=== PATIENT | female | born 1990 | race African-American/Black ===

== ENCOUNTER 2017-04-22 02:56 | Emergency (ER) | payer SELFPAY ==
[~2017-04-22] VITALS: Ht 154.9 cm; Wt 68.0 kg
[2017-04-22 03:24] VITALS: BP 127/88
[2017-04-22] MEDS ORDERED: FLUORESCEIN OPHTH TEST STRIP. OD ONE (04:00)
[2017-04-22] MEDS ORDERED: TETRACAINE 0.5% OPHTH SOLUTION 4ML BOTTLE. OD ONE (04:00)
--- NOTE | 2017-04-22 04:06 | PHYS DOC ---
Past Medical History Past Medical History: No Pertinent History Past Surgical History: No Surgical History Alcohol Use: None Drug Use: None Adult General Chief Complaint Chief Complaint: EYE PROBLEMS [facility] HPI Patient is a 27 year old female who presents with complains of right eye pain for the past couple hours after her infant son accidentally poked her in the right eye. She says she is able to see out of the eye but it hurts. No other trauma or injury; does not wear contact lenses. Review of Systems Review of Systems Constitutional: Denies fever or chills [] Eyes: Denies change in visual acuity, redness, or eye pain [] HENT: Denies nasal congestion or sore throat [] Respiratory: Denies cough or shortness of breath [] Cardiovascular: No additional information not addressed in HPI [] GI: Denies abdominal pain, nausea, vomiting, bloody stools or diarrhea [] : Denies dysuria or hematuria [] Musculoskeletal: Denies back pain or joint pain [] Integument: Denies rash or skin lesions [] Neurologic: Denies headache, focal weakness or sensory changes [] Endocrine: Denies polyuria or polydipsia [] Current Medications Current Medications Current Medications Medications (Trade) Dose Ordered Sig/Hern[place] Start Time Stop Time Status Last Admin Dose Admin Fluorescein Sodium (Ful-Ana) 1 strip 1X ONCE 04/22/17 04:00 04/22/17 04:01 DC 04/22/17 03:34 1 STRIP Tetracaine HCl (Tetracaine) 1 drop 1X ONCE 04/22/17 04:00 04/22/17 04:01 DC 04/22/17 03:34 1 DROP Allergies Allergies Allergies Coded Allergies Type Severity Reaction Last Updated Verified No Known Drug Allergies 04/22/17 No Physical Exam Physical Exam Constitutional: Well developed, well nourished, no acute distress, non-toxic appearance. [] HENT: Normocephalic, atraumatic, bilateral external ears normal, oropharynx moist, no oral exudates, nose normal. [] Eyes: PERRLA, EOMI, conjunctiva normal, no discharge. Right eye conjunctiva and sclera are injected using a slit lamp after tetracaine was instilled and FLOURESCEIN strips patient is a rather large corneal abrasion; pupil is normal in size and shape and the anterior chamber Is clear; there is no hyphema. [] Neck: Normal range of motion, no tenderness, supple, no stridor. [] Cardiovascular:Heart rate regular rhythm, no murmur [] Lungs & Thorax: Bilateral breath sounds clear to auscultation [] Abdomen: Bowel sounds normal, soft, no tenderness, no masses, no pulsatile masses. [] Skin: Warm, dry, no erythema, no rash. [] Back: No tenderness, no CVA tenderness. [] Extremities: No tenderness, no cyanosis, no clubbing, ROM intact, no edema. [] Neurologic: Alert and oriented X 3, normal motor function, normal sensory function, no focal deficits noted. [] Psychologic: Affect normal, judgement normal, mood normal. [] Current Patient Data Vital Signs Vital Signs Date Time Temp Pulse Resp B/P (MAP) Pulse Ox O2 Delivery O2 Flow Rate FiO2 04/22/17 03:24 99.1 82 16 97 Room Air 99.1 EKG EKG [] Radiology/Procedures Radiology/Procedures [] Course & Med Decision Making Course & Med Decision Making Pertinent Labs and Imaging studies reviewed. (See chart for details) Patient will be placed on Cipro ophthalmic drops [] Dragon Disclaimer Dragon Disclaimer This electronic medical record was generated, in whole or in part, using a voice recognition dictation system. Departure Departure Impression: Primary Impression: Right corneal abrasion Disposition: HOME, SELF-CARE Condition: IMPROVED Referrals: NO PCP (PCP) TYSHAWN NEWELL MD April 22, 2017 04:06
[2017-04-22] MEDS ORDERED: CIPR2.5D OD (04:09)
== END 2017-04-22 04:20 | disposition home or self-care (01) ==
LOC: ER 02:56
DX: S05.01XA Injury of conjunctiva and corneal abrasion without foreign body, right eye, initial encounter (principal); W50.4XXA Accidental scratch by another person, initial encounter; Y93.89 Activity, other specified; Y92.89 Other specified places as the place of occurrence of the external cause; Y99.8 Other external cause status
CPT/HCPCS: 99283